=== PATIENT | female | born 1990 | race Caucasian/White ===

== ENCOUNTER → 2019-09-16 11:00 | Outpatient (BNVA) | payer MEDICAID, SELFPAY | PROVIDERS: Visit Provider Nurse Practitioner | DX: B37.9 Candidiasis, unspecified (principal); K59.00 Constipation, unspecified | CPT/HCPCS: 87070 ==

== ENCOUNTER 2019-12-09 11:02 | Day surgery (SDC) | payer MEDICAID, SELFPAY ==
[2019-12-06 14:20] VITALS: BMI 35.5
--- NOTE | 2019-12-09 09:13 | W.PM.OPSFHP ---
Same Day Surgery H&P Indication for Procedure/HPI DATE OF PROCEDURE: December 09, 2019 CHIEF COMPLAINT/INDICATIONFOR SURGICAL PROCEDURE: Nausea vomiting and weight loss PREOP DIAGNOSIS: Nausea vomiting and weight loss PLANNED PROCEDRUE: Operation Date: 12/09/19 12:40 Proposed Procedures p EGD 72617 R11.2(Not Applicable) - Amando Velasquez MD Medications/Allergies* Home Medications Medication Instructions Recorded Confirmed Type prochlorperazine maleate 5 mg 5 mg PO QID PRN 11/05/19 12/06/19 History tablet Allergies/Adverse Reactions Allergy/AdvReac Type Severity Reaction Status Date / Time No Known Allergies Allergy Verified 12/06/19 10:55 Pertinent History/Comorbid Conditions* Social History Smoking and tobacco status: never smoked Second hand smoke exposure: No Smoking risk assessment/counseling performed?: No Alcohol intake: never Desire information about alcohol rehabilitation?: No Counseling given: No Desire information about substance/drug rehabilitation?: No Counseling given: No Pertinent Exam Findings alert, oriented x 3, clear to auscultation bilaterally, regular rate & rhythm, operative site marked and procedure specific exam findings Recommendations Surgery/Procedure today Coding Level of Care Code Acute Air Bag Buffer for Razia Munoz
[2019-12-09 11:30] VITALS: BP 119/84; PULSE 81; RESP 18; TEMP 36.8; O2SAT 100
[2019-12-09] MEDS: sodium chloride 0.9% 1,000 ML 30 ML IV (11:35)
--- NOTE | 2019-12-09 12:01 | P.ANESASSM_ITS ---
Pre-Anesthetic Assessment Pre-Anesthetic Assessment: Height/Weight: Height 1.68 m Weight 99.79 kg Temp Pulse Resp BP Pulse Ox 98.2 F 81 18 119/84 100 12/09/19 11:30 12/09/19 11:30 12/09/19 11:30 12/09/19 11:30 12/09/19 11:30 Preop Diagnosis: nv Proposed Procedure: Operation Date: 12/09/19 12:40 Proposed Procedures p EGD 03310 R11.2(Not Applicable) - Amando Velasquez MD Familial anesthetic complications: None Was Beta Madonna taken within 24 hours: N/A Last intake: Intake Last Liquid Date 12/08/19 Last Liquid Time 19:30 Last Solid Date 12/08/19 Last Solid Time 19:30 Social: Social History: No alcohol and No tobacco Exam: Pre-Anes Outpt Exam: alert, oriented x 3, clear to auscultation bilaterally and regular rate & rhythm Airway: Cervical ROM: WNL MP: 1 Dentition: Full Pulmonary: Pulmonary: None reported CV/HEM: CV/HEM: None reported : : None reported Hepatic: Hepatic: None reported GI: GI: GERD Metabolic: Metabolic: Morbid obesity Musc/skel: Musc/skel: None reported Neuropsych: Neuropsych: None reported Anesthetic Plan: ASA status: 1 Anesthesia: MAC Risk of > 500 ml blood loss (7ml/kg in children): No Meds/Allergies Current Medications: Current Medications Generic Name Dose Route Start Last Admin Trade Name Freq PRN Reason Stop Dose Admin Sodium Chloride 1,000 mls @ 30 ml s/hr 12/09/19 11:15 12/09/19 11:35 Sodium Chloride 0.9% IV 12/10/19 11:14 30 mls/hr .Q24H KLAUS Administration PFSH Anesthesia PFSH: Social History (System 12/06/19 @ 10:55 by Katey Salamanca) Smoking and tobacco status: never smoked Second hand smoke exposure: No Smoking risk assessment/counseling performed?: No Alcohol intake: never Desire information about alcohol rehabilitation?: No Counseling given: No Desire information about substance/drug rehabilitation?: No Counseling given: No Data Anesthesia Cardiac Studies: 2 No Data to Display
[2019-12-09 13:09] VITALS: BP 130/71; PULSE 69; RESP 16; TEMP 36.7; O2SAT 99
--- NOTE | 2019-12-09 13:12 | ANE.PACU2 ---
 Inpatient post-anesthesia follow up: Airway intact: Yes Vital signs: Temperature 98.0 F Pulse Rate 69 Respiratory Rate 16 Blood Pressure 130/71 Pulse Oximetry 99 Oxygen Delivery Me thod Room Air Oxygen Flow Rate Fraction of Inspir ed Oxygen Hydration adequate: Yes Nausea and vomiting: No Pain level: 1 Mental status: Baseline
[2019-12-09 13:15] VITALS: BP 129/78; PULSE 61; RESP 16; O2SAT 99
--- NOTE | 2019-12-09 13:34 | PC.NURSE ---
Patient stated that her fiance was going to be a little late coming to get her, (at a car dealership) and requested to sit in the OPS waiting room for him to arrive. This nurse escorted the patient via w/c to the waiting room and instructed the patient to remain in the waiting room for her ride. The patient agreed and verified that she would not be leaving on her own or driving herself home today.
== END 2019-12-09 13:30 | disposition home or self-care (01) ==
PROVIDERS: Visit Provider Internal Medicine
PROC: 0DJ08ZZ Inspection of Upper Intestinal Tract, Via Natural or Artificial Opening Endoscopic (ICD-10-PCS; CPT 43235; principal; 2019-12-09 12:35)
DX: R11.2 Nausea with vomiting, unspecified (principal); K21.9 Gastro-esophageal reflux disease without esophagitis; E66.01 Morbid (severe) obesity due to excess calories; Z68.35 Body mass index [BMI] 35.0-35.9, adult
CPT/HCPCS: 43235; 12345; J2704; J7030

== ENCOUNTER 2020-04-05 20:09 | Emergency (ER) | payer MEDICAID, SELFPAY ==
[2020-04-05 20:18] VITALS: BP 115/52; PULSE 69; RESP 18; TEMP 37.2; O2SAT 97; BMI 34.8
--- NOTE | 2020-04-05 20:45 | XR_ITS ---
WS: [id number] PORTABLE CHEST HISTORY: Dyspnea COMPARISON: None available. Lungs are clear and well expanded. No pleural effusion or pneumothorax. Cardiac size: Normal. Mediastinum/Aorta: Normal mediastinum. No osseous abnormality seen. XR/XR chest 1V portable [id number] IMPRESSION: Unremarkable portable chest.
--- NOTE | 2020-04-05 21:21 | ED_ITS ---
HPI - SOB/Dyspnea General: Chief Complaint: Shortness of Breath/Dyspnea Stated Complaint: SOB/ chest pain/ covid symptoms Time Seen by Provider: 04/05/20 20:30 Source: patient Mode of arrival: ambulatory Limitations: no limitations History of Present Illness: HPI Narrative: Christine is a nice 30-year-old female who comes in complaining of cough and sore throat. Patient has a known positive exposure to the COVID-19 virus. Patient denies any fever, loss of sense of taste, loss of sense of smell or any nausea or vomiting. She states she just feels like she is beginning to get a cold. She otherwise denies any complaints. Associated symptoms: Deny abdominal pain, chest congestion, chest pain, diaphoresis, dizziness, extremity pain, fever(s), hemoptysis, lightheadedness, nausea, orthopnea, palpitations, syncope or vomiting Review of Systems Const: Denies: fever(s), chills, body aches, fatigue, malaise or diaphoresis Eyes: Denies: change in vision, blurry vision, photophobia, eye discomfort, eye discharge or eye redness ENMT: Reports: throat pain; Denies: odynophagia, hoarseness, swelling of lips/tongue, ear or mastoid pain, ear discharge, change in hearing or nasal discharge Card: Denies: chest pain, palpitations, irregular heart rhythm, edema, lightheadedness, syncope, pre-syncope, dyspnea on exertion or orthopnea Resp: Denies: dyspnea, productive cough, wheezing, hemoptysis or chest congestion GI: Denies: abdominal pain, nausea, vomiting, hematemesis, coffee ground emesis, heartburn, diarrhea, constipation, GI cramping, hematochezia or melena : Denies: flank pain, dysuria, urinary frequency, urinary urgency or hematuria Musc: Denies: neck pain, back pain, extremity pain, extremity swelling, joint pain, joint swelling, joint redness, joint warmth or joint stiffness Skin/Breast: Denies: rash, pruritus, erythema or skin tenderness Neuro: Denies: headache(s), numbness in extremities, weakness in extremities, sensory changes, lack of coordination, difficulty walking, dizziness, vertigo, confusion, Slurred speech present or seizure-like activity Luiz/Lymph: Denies: easy bruising, easy bleeding, petechiae, purpura or enlarged lymph nodes All/Imm: Denies: urticaria, throat swelling, tongue swelling, facial swelling or acute wheezing PFSH ED PFSH: Medical History Recurrent UTI Surgical History History of esophagogastroduodenoscopy (EGD) Family History Other Cancer Diabetes Social History Smoking and tobacco status: never smoked Second hand smoke exposure: No Smoking risk assessment/counseling performed?: No Alcohol intake: never Desire information about alcohol rehabilitation?: No Counseling given: No Desire information about substance/drug rehabilitation?: No Counseling given: No Female Reproductive History: Date of last menstrual period: 03/30/20 Physical Exam Const: COMMON NORMALS: no acute distress, patient oriented x3, no limitations, healthy appearing and well nourished GENERAL APPEARANCE: cooperative, well kempt and well developed HENMT: COMMON NORMALS: normocephalic, atraumatic, external ears normal, EAC's normal and Normal external nose present HEAD & SCALP: normal to inspection, normocephalic and atraumatic FACE & SINUS: normal facial exam and face symmetric NOSE: Normal external nose present and Normal nares present EXTERNAL EAR: Yes external ears normal EXTERNAL AUDITORY CANAL: EAC's normal MOUTH: Normal oral and palatal mucosa present, lip normal and tongue normal Eye: COMMON NORMALS: Equal, round and reactive pupils present and conjunctivae normal GENERAL EYE: appearance normal, both eyes and all related structures ALIGNMENT: Yes alignment normal PERIORBITAL: periorbital findings normal EYELID: eyelids normal CONJUNCTIVA: Yes conjunctivae normal SCLERA: sclerae normal PUPIL: Yes Equal, round and reactive pupils present Neck/C-Spine: COMMON NORMALS: full ROM, no lymphadenopathy, supple, no meningeal signs and no JVD GENERAL: Yes normal visual inspection and Yes trachea midline Chest: COMMONS NORMALS: normal inspection of the chest and normal palpation of entire chest wall Resp: COMMON NORMALS: normal respiratory effort, No retractions, No use of accessory muscles and clear to auscultation bilaterally EFFORT & INSPECTION: Yes able to speak in complete sentences and Yes symmetric chest movement AUSCULTATION: clear to auscultation bilaterally, no crackles, no rales, no rhonchi and no wheezes Cardio: COMMON NORMALS: no JVD, regular rate, regular rhythm, S1 normal heart sound present and S2 normal heart sound present RATE: regular rate RHYTHM: regular rhythm HEART SOUNDS: S1 normal heart sound present, S2 normal heart sound present, no click, no gallops, no murmurs, no rubs and abnormal split S2 GI: COMMON NORMALS: Soft to palpation and No hepatosplenomegaly present PALPATION: Yes Soft to palpation, No Tenderness to palpation present (GI), No Guarding due to palpation present (GI), No Rigid due to palpation, Yes No hepatosplenomegaly present, No Hernia present, No Palpable mass present and No Pulsatile mass present : COMMON NORMALS: Yes no CVA tenderness BLADDER/KIDNEY EXAM: Yes no CVA tenderness EXTERNAL FEMALE EXAM: No Hernia present Back/Pelvis: COMMON NORMALS: no CVA tenderness, thoracic and lumbar spine normal to inspection, no thoracic nor lumbar tenderness and thoraco-lumbar ROM normal Extremity: COMMON NORMALS: normal to inspection, full ROM, capillary refill normal, no joint enlargement, no clubbing, cyanosis or edema and no calf tenderness Neuro: COMMON NORMALS: patient oriented x3, CN's II-XII intact bilaterally, moves all extremities, no focal motor deficits and no sensory deficits noted MENINGEAL SIGNS: Yes no meningeal signs SPEECH: speech normal Psych: COMMON NORMALS: mental status grossly normal, Normal thought process present, cooperative, normal affect, speech normal and activity/motor behavior normal APPEARANCE: Yes well kempt SPEECH: Yes normal speech THOUGHT PROCESS: Normal thought process present Skin: COMMON NORMALS: no rashes or lesions noted, turgor normal, no jaundice, no petechiae and no mottling GENERAL SKIN EXAM: no rashes or lesions noted and turgor normal Course Vital Signs: Vital signs: Vital Signs Temperature 98.9 F 04/05/20 20:18 Pulse Rate 69 04/05/20 20:18 Respiratory Rate 18 04/05/20 20:18 Blood Pressure 115/52 04/05/20 20:18 Pulse Oximetry 97 04/05/20 20:18 MDM - SOB/Dyspnea MDM Narrative: Medical decision making narrative: Patient is a healthy 30-year-old female comes in complaining of shortness of breath, cough and sore throat. She has a positive COVID-19 exposure. At this time she appears hemodynamically stable without hypoxia, tachypnea and no clinical sign of sep sis. Chest x-ray is clear and she is not hypoxic. COVID test has been sent the patient states she can quarantine herself until the results are known. She agrees to return should her symptoms change or worsen but at this time she is ready for discharge. Imaging Data^: CXR: Attestation: I personally reviewed and interpreted this imaging study as follows: My impression: No acute cardiopulmonary findings. Discharge Plan Discharge Patient Disposition: Home Clinical Impression: Acute viral syndrome Condition: Stable Prescriptions: No Action prochlorperazine maleate 5 mg tablet 5 mg PO QID PRN (Reason: Nausea) RF: 0 Dexilant 30 mg capsule,biphase delayed releas 30 mg PO DAILY Qty: 30 RF: 1 Discharge Orders: Discharge Order (Routine); Ordered 04/05/20 Ordered By: Cecile Pascual Referrals: Amando Velasquez MD [Primary Care Provider] - 1-3 days Discharge Diet: Advance as tolerated Discharge Activity: Increase activity as tolerated Patient Instructions: Viral Syndrome (ED) Activity Restrictions/Additional Instructions: Please return to the ER immediately for any of the signs or symptoms listed on your discharge instruction sheets, worsening/changing of your symptoms, you are not getting better as quickly as expected, or for ANY other cause or concerns. Keep yourself quarantined and away from others until you were called with your test results. Return to the ER for worsening of your symptoms, chest pain, shortness of breath, or for any other cause for concern. Coding Level of Care Code ED Jewel Hole Finish Opener for Razia Munoz
[2020-04-05 22:05] VITALS: BP 146/70; PULSE 89; RESP 18; O2SAT 99
[2020-04-07 15:37] LABS: Quest SARS-CoV-2 RNA NOT DETECTED (NOT DETECTED)
--- NOTE | 2020-04-08 08:32 | PC.NURSE ---
Attempted to contact the pt again today. No working number is listed on facesheet. We are sending a letter out to pt.
--- NOTE | 2020-04-08 09:21 | PC.NURSE ---
pt called asking for lab results. Neg COVID results.
== END 2020-04-05 22:07 | disposition home or self-care (01) ==
PROVIDERS: Emergency Provider Emergency Medicine; PCP Internal Medicine
DX: B34.9 Viral infection, unspecified (principal)
CPT/HCPCS: 12345; 71045; 87635; 99281; 99283

== ENCOUNTER → 2020-09-29 11:20 | Outpatient (BNVA) | payer MEDICAID, SELFPAY | PROVIDERS: PCP Internal Medicine; Visit Provider Nurse Practitioner Women's Health | DX: Z12.4 Encounter for screening for malignant neoplasm of cervix (principal); N89.8 Other specified noninflammatory disorders of vagina | CPT/HCPCS: 87070; 87205; 88175 ==

== ENCOUNTER 2020-11-24 16:21 | Emergency (ER) | payer MEDICAID, SELFPAY ==
[2020-11-24 16:33] VITALS: BP 120/85; PULSE 78; RESP 18; TEMP 37.3; O2SAT 97; BMI 38.0
--- NOTE | 2020-11-24 16:49 | W.ED.CHESTPA ---
Documented by User: Carlito Reynolds DO 11/28/20 14:39 HPI - Chest Pain General: Chief Complaint: Chest Pain Stated Complaint: CHEST PAIN/NUMBNESS IN L. 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 She is nondiabetic she has no history of hypertension or diabetes no history of hyperlipidemia. MD complaint: chest pain and chest heaviness Onset (ago): minute(s) Timing of current episode: episodic Onset: during rest Pain location: left chest Pain radiation: left arm Severity: moderate Quality: heaviness Relieving factors: nothing Exacerbating factors: nothing Associated symptoms: Deny abdominal pain, diaphoresis, dyspnea, fever(s), leg edema, nausea, palpitations, sense of impending doom, syncope, vomiting or other Review of Systems Const: Denies: fever(s) or diaphoresis ENMT: Denies: throat pain, ear or mastoid pain, nasal discharge or nasal congestion Card: Denies: palpitations Resp: Denies: dyspnea GI: Denies: abdominal pain, nausea or vomiting : Denies: flank pain, difficulty voiding, dysuria, urinary frequency or urinary urgency Skin/Breast: Denies: rash or pruritus PFSH ED PFSH: Medical History (Updated 11/27/20 @ 16:19 by Chung Bonds MD) No pertinent past medical history neghx: htn,dm,thyroid,dvt/pe 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 Family/Other Breast cancer Maternal Aunt--dx age 30's Diabetes Maternal side-- several members; only MGF with insulin Other Family history of premature coronary artery disease Denies family history of Colon cancer Ovarian cancer Heart disease Hypercholesteremia Hypertension Uterine cancer Thyroid disease Stroke Social History (Updated 11/27/20 @ 16:15 by Chung Bonds MD) Smoking and tobacco status: current every day smoker cigarettes [ Other cigarette details: Quit smoking in 08/2020 ] and e-cigarettes E-cig/vape details: Report currently vapes. Alcohol intake: current Alcohol use comment: Socially Substance/Drug Use: never Female Reproductive History: Date of last menstrual period: 03/30/20 Physical Exam Const: COMMON NORMALS: no acute distress GENERAL APPEARANCE: cooperative and comfortable ORIENTATION/CONSCIOUSNESS: Yes awake, Yes oriented to person, Yes oriented to place and Yes oriented to time HENMT: COMMON NORMALS: normocephalic, atraumatic and hearing grossly normal bilaterally HEAD & SCALP: normocephalic and atraumatic Eye: COMMON NORMALS: Equal, round and reactive pupils present, EOMs intact bilaterally, conjunctivae normal and no scleral icterus CONJUNCTIVA: Yes conjunctivae normal PUPIL: Yes Equal, round and reactive pupils present Neck/C-Spine: COMMON NORMALS: full ROM, no lymphadenopathy, supple and no JVD Lymph: LYMPHATIC: no lymphadenopathy noted and no lymphedema noted Resp: COMMON NORMALS: normal respiratory effort, No retractions, No use of accessory muscles and clear to auscultation bilaterally AUSCULTATION: clear to auscultation bilaterally Cardio: COMMON NORMALS: no JVD, regular rate, regular rhythm and No murmurs present (Cardio) RATE: regular rate RHYTHM: regular rhythm GI: COMMON NORMALS: Soft to palpation and No hepatosplenomegaly present AUSCULTATION: Yes normoactive bowel sounds PALPATION: Yes Soft to palpation, No Tenderness to palpation present (GI), No Guarding due to palpation present (GI) and Yes No hepatosplenomegaly present Extremity: COMMON NORMALS: normal to inspection, capillary refill normal, no clubbing, cyanosis or edema, no calf tenderness and no pedal edema Neuro: SENSORIUM/ORIENTATION: Yes oriented to person, Yes oriented to place and Yes oriented to time Skin: COMMON NORMALS: no rashes or lesions noted GENERAL SKIN EXAM: no rashes or lesions noted Course Vital Signs: Vital signs: Vital Signs Temperature 99.2 F 11/24/20 16:33 Pulse Rate 70 11/24/20 20:45 Respiratory Rate 18 11/24/20 18:34 Blood Pressure 135/85 11/24/20 20:45 Pulse Oximetry 100 11/24/20 20:45 MDM - Chest Pain MDM Narrative: Medical decision making narrative: Care turned over to Dr. Cheng at change of shift see his note for final diagnosis and disposition Lab Data: Labs: Lab Results 11/24/20 11/24/20 11/24/20 Range/Units 17:04 17:04 17:04 WBC 7.1 (4.0-10.0) 10^3/ uL RBC 5.16 (4.1-5.3) 10^6/u L Hgb 14.2 (11.5-15.3) g/dL Hct 44.4 (37.0-47.0) % MCV 86.0 (81-99) fL MCH 27.5 L (28.0-34.0) pg MCHC 32.0 (30.0-36.0) g/dL RDW 13.1 (12.1-15.1) % Plt Count 263 (130-400) 10^3/c mm MPV 11.8 H (7.4-10.4) fL Neut % (Auto) 59.7 % Lymph % (Auto) 30.9 % [place] % (Auto) 8.0 % Eos % (Auto) 0.4 % Baso % (Auto) 0.7 % Neut # (Auto) 4.26 (1.8-7.7) 10^3/u L Lymph # (Auto) 2.2 (0.8-4.8) 10^3/u L [place] # (Auto) 0.6 (0.2-0.9) 10^3/u L Eos # (Auto) 0.0 (0.0-0.8) 10^3/u L Baso # (Auto) 0.1 (0.0-0.1) 10^3/u L Nucleated RBC % (a uto) 0 % Nucleated RBCs # 0.0 /100WBC D-Dimer (0-0.59) ug/mIFE U Sodium 140 (136-145) mmol/L Potassium 4.1 (3.5-5.1) mmol/L Chloride 105 (98-107) mmol/L Carbon Dioxide 25 (22-29) mmol/L Anion Gap 14.1 (5-19) BUN 7 (6-20) mg/dL Creatinine 0.6 (0.5-0.9) mg/dL GFR Calculation 117.4 (90-130) mL/min Glucose 87 (65-115) mg/dL Calculated Osmolal ity 287 (285-295) mOsm/k g Calcium 9.5 (8.5-10.5) mg/dL Total Bilirubin 0.3 (0.15-1.2) mg/dL AST 12 (0-32) U/L ALT 10 (0-33) U/L Alkaline Phosphata se 78 (35-105) IU/L Creatine Kinase 52 (26-192) U/L Troponin T Baselin e 6 (0-10) ng/L Troponin T 120 Min [place] (0-10) ng/L Delta Troponin T (0-10) ABS# Total Protein 7.1 (6.6-8.7) g/dL Albumin 4.6 (3.5-5.2) g/dL Globulin 2.5 (1.3-4.6) g/dL 11/24/20 11/24/20 Range/Units 17:28 19:05 WBC (4.0-10.0) 10^3/ uL RBC (4.1-5.3) 10^6/u L Hgb (11.5-15.3) g/dL Hct (37.0-47.0) % MCV (81-99) fL MCH (28.0-34.0) pg MCHC (30.0-36.0) g/dL RDW (12.1-15.1) % Plt Count (130-400) 10^3/c mm MPV (7.4-10.4) fL Neut % (Auto) % Lymph % (Auto) % [place] % (Auto) % Eos % (Auto) % Baso % (Auto) % Neut # (Auto) (1.8-7.7) 10^3/u L Lymph # (Auto) (0.8-4.8) 10^3/u L [place] # (Auto) (0.2-0.9) 10^3/u L Eos # (Auto) (0.0-0.8) 10^3/u L Baso # (Auto) (0.0-0.1) 10^3/u L Nucleated RBC % (a uto) % Nucleated RBCs # /100WBC D-Dimer 0.44 (0-0.59) ug/mIFE U Sodium (136-145) mmol/L Potassium (3.5-5.1) mmol/L Chloride (98-107) mmol/L Carbon Dioxide (22-29) mmol/L Anion Gap (5-19) BUN (6-20) mg/dL Creatinine (0.5-0.9) mg/dL GFR Calculation (90-130) mL/min Glucose (65-115) mg/dL Calculated Osmolal ity (285-295) mOsm/k g Calcium (8.5-10.5) mg/dL Total Bilirubin (0.15-1.2) mg/dL AST (0-32) U/L ALT (0-33) U/L Alkaline Phosphata se (35-105) IU/L Creatine Kinase (26-192) U/L Troponin T Baselin e (0-10) ng/L Troponin T 120 Min [place] 6.00 (0-10) ng/L Delta Troponin T 0 (0-10) ABS# Total Protein (6.6-8.7) g/dL Albumin (3.5-5.2) g/dL Globulin (1.3-4.6) g/dL Discharge Plan Discharge Patient Disposition: Home Clinical Impression: Atypical chest pain, Chest pain due to GERD, Esophageal spasm Chest pain Qualifiers: Chest pain type: other chest pain Qualified Code(s): R07.89 - Other chest pain Condition: Stable Prescriptions: No Action fluconazole [Diflucan] 200 mg tablet 200 mg PO .COMPLEX Qty: 3 RF: 0 Discharge Orders: Discharge ED (Routine); Ordered 11/24/20 Ordered By: Jorge Cheng Referrals: Amanda Girard DO [Primary Care Provider] - 4-7 days Discharge Diet: Advance as tolerated Discharge Activity: Resume usual activity Patient Instructions: Opioid Safety Activity Restrictions/Additional Instructions: May take Levsin as needed for esophageal spasm. Take omeprazole and Carafate to help with reflux. Sign Out Sign Out Data: Patient Sign Out occurred on 11/24/20 at 18:14. Patient's care was discussed, and care was transferred from to Jorge Cheng MD. Coding Level of Care Code ED General Assembler Installer for Chg Fwd Documented by User: Jorge Cheng MD 11/24/20 20:34 HPI - Chest Pain General: Chief Complaint: Chest Pain Stated Complaint: CHEST PAIN/NUMBNESS IN L. 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 Family/Other Breast cancer Maternal Aunt--dx age 30's Diabetes Maternal side-- several members; only MGF with insulin Other Family history of premature coronary artery disease Denies family history of Colon cancer Ovarian cancer Heart disease Hypercholesteremia Hypertension Uterine cancer Thyroid disease Stroke Social History (Updated 11/27/20 @ 16:15 by Chung Bonds MD) Smoking and tobacco status: current every day smoker cigarettes [ Other cigarette details: Quit smoking in 08/2020 ] and e-cigarettes E-cig/vape details: Report currently vapes. Alcohol intake: current Alcohol use comment: Socially Substance/Drug Use: never Course Vital Signs: Vital signs: Vital Signs Temperature 99.2 F 11/24/20 16:33 Pulse Rate 70 11/24/20 20:45 Respiratory Rate 18 11/24/20 18:34 Blood Pressure 135/85 11/24/20 20:45 Pulse Oximetry 100 11/24/20 20:45 MDM - Chest Pain MDM Narrative: Medical decision making narrative: assumed care from dr. reynolds Pain is likely due to esophageal spasm and GERD. Lab Data: Attestation: I reviewed the patient's lab results. Lab results narrative: Second troponin is still normal. Labs: Lab Results 11/24/20 11/24/20 11/24/20 Range/Units 17:04 17:04 17:04 WBC 7.1 (4.0-10.0) 10^3/ uL RBC 5.16 (4.1-5.3) 10^6/u L Hgb 14.2 (11.5-15.3) g/dL Hct 44.4 (37.0-47.0) % MCV 86.0 (81-99) fL MCH 27.5 L (28.0-34.0) pg MCHC 32.0 (30.0-36.0) g/dL RDW 13.1 (12.1-15.1) % Plt Count 263 (130-400) 10^3/c mm MPV 11.8 H (7.4-10.4) fL Neut % (Auto) 59.7 % Lymph % (Auto) 30.9 % [place] % (Auto) 8.0 % Eos % (Auto) 0.4 % Baso % (Auto) 0.7 % Neut # (Auto) 4.26 (1.8-7.7) 10^3/u L Lymph # (Auto) 2.2 (0.8-4.8) 10^3/u L [place] # (Auto) 0.6 (0.2-0.9) 10^3/u L Eos # (Auto) 0.0 (0.0-0.8) 10^3/u L Baso # (Auto) 0.1 (0.0-0.1) 10^3/u L Nucleated RBC % (a uto) 0 % Nucleated RBCs # 0.0 /100WBC D-Dimer (0-0.59) ug/mIFE U Sodium 140 (136-145) mmol/L Potassium 4.1 (3.5-5.1) mmol/L Chloride 105 (98-107) mmol/L Carbon Dioxide 25 (22-29) mmol/L Anion Gap 14.1 (5-19) BUN 7 (6-20) mg/dL Creatinine 0.6 (0.5-0.9) mg/dL GFR Calculation 117.4 (90-130) mL/min Glucose 87 (65-115) mg/dL Calculated Osmolal ity 287 (285-295) mOsm/k g Calcium 9.5 (8.5-10.5) mg/dL Total Bilirubin 0.3 (0.15-1.2) mg/dL AST 12 (0-32) U/L ALT 10 (0-33) U/L Alkaline Phosphata se 78 (35-105) IU/L Creatine Kinase 52 (26-192) U/L Troponin T Baselin e 6 (0-10) ng/L Troponin T 120 Min [place] (0-10) ng/L Delta Troponin T (0-10) ABS# Total Protein 7.1 (6.6-8.7) g/dL Albumin 4.6 (3.5-5.2) g/dL Globulin 2.5 (1.3-4.6) g/dL 11/24/20 11/24/20 Range/Units 17:28 19:05 WBC (4.0-10.0) 10^3/ uL RBC (4.1-5.3) 10^6/u L Hgb (11.5-15.3) g/dL Hct (37.0-47.0) % MCV (81-99) fL MCH (28.0-34.0) pg MCHC (30.0-36.0) g/dL RDW (12.1-15.1) % Plt Count (130-400) 10^3/c mm MPV (7.4-10.4) fL Neut % (Auto) % Lymph % (Auto) % [place] % (Auto) % Eos % (Auto) % Baso % (Auto) % Neut # (Auto) (1.8-7.7) 10^3/u L Lymph # (Auto) (0.8-4.8) 10^3/u L [place] # (Auto) (0.2-0.9) 10^3/u L Eos # (Auto) (0.0-0.8) 10^3/u L Baso # (Auto) (0.0-0.1) 10^3/u L Nucleated RBC % (a uto) % Nucleated RBCs # /100WBC D-Dimer 0.44 (0-0.59) ug/mIFE U Sodium (136-145) mmol/L Potassium (3.5-5.1) mmol/L Chloride (98-107) mmol/L Carbon Dioxide (22-29) mmol/L Anion Gap (5-19) BUN (6-20) mg/dL Creatinine (0.5-0.9) mg/dL GFR Calculation (90-130) mL/min Glucose (65-115) mg/dL Calculated Osmolal ity (285-295) mOsm/k g Calcium (8.5-10.5) mg/dL Total Bilirubin (0.15-1.2) mg/dL AST (0-32) U/L ALT (0-33) U/L Alkaline Phosphata se (35-105) IU/L Creatine Kinase (26-192) U/L Troponin T Baselin e (0-10) ng/L Troponin T 120 Min [place] 6.00 (0-10) ng/L Delta Troponin T 0 (0-10) ABS# Total Protein (6.6-8.7) g/dL Albumin (3.5-5.2) g/dL Globulin (1.3-4.6) g/dL Discharge Plan Discharge Patient Disposition: Home Clinical Impression: Atypical chest pain, Chest pain due to GERD, Esophageal spasm Chest pain Qualifiers: Chest pain type: other chest pain Qualified Code(s): R07.89 - Other chest pain Condition: Stable Prescriptions: No Action fluconazole [Diflucan] 200 mg tablet 200 mg PO .COMPLEX Qty: 3 RF: 0 Discharge Orders: Discharge ED (Routine); Ordered 11/24/20 Ordered By: Jorge Cheng Referrals: Amanda Girard DO [Primary Care Provider] - 4-7 days Discharge Diet: Advance as tolerated Discharge Activity: Resume usual activity Patient Instructions: Opioid Safety Activity Restrictions/Additional Instructions: May take Levsin as needed for esophageal spasm. Take omeprazole and Carafate to help with reflux. Sign Out Sign Out Data: Patient Sign Out occurred on 11/24/20 at 18:14. Patient's care was discussed, and care was transferred from to Jorge Cheng MD. Coding Level of Care Code ED General Assembler Installer for Razia Munoz
[2020-11-24 17:14] VITALS: BP 121/84; PULSE 87; RESP 18; O2SAT 96
--- NOTE | 2020-11-24 17:17 | ECG_ITS ---
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
--- NOTE | 2020-11-24 17:17 | XR_ITS ---
WS: [id number] Portable AP upright chest, 11/24/2020 Clinical Data: dyspnea Comparison: Portable chest, 04/05/2020. Findings: No nodules, masses or effusions are seen. The heart is normal. The pulmonary vascularity is not increased. No pneumonia or pneumothorax is seen. There are monitor leads on the chest wall. XR/XR chest 1V portable [id number] Impression: Negative chest.
[2020-11-24 17:43] LABS: Basophils # 0.1 10^3/uL (0.0-0.1); Basophils % 0.7 %; Eosinophils % 0.4 %; Hematocrit 44.4 % (37.0-47.0); Hemoglobin 14.2 g/dL (11.5-15.3); Lymphocytes # 2.2 10^3/uL (0.8-4.8); Lymphocytes % 30.9 %; Mean Corpuscular Hemoglobin 27.5 pg (28.0-34.0); Mean Platelet Volume 11.8 fL (7.4-10.4); Monocytes # 0.6 10^3/uL (0.2-0.9); Neutrophils # 4.26 10^3/uL (1.8-7.7); Neutrophils % 59.7 %; Nucleated Red Blood Cells % 0 %; Platelet Count 263 10^3/cmm (130-400); Red Blood Count 5.16 10^6/uL (4.1-5.3); Red Cell Distribution Width 13.1 % (12.1-15.1); White Blood Count 7.1 10^3/uL (4.0-10.0)
[2020-11-24 18:10] LABS: Alanine Aminotransferase 10 U/L (0-33); Albumin Level 4.6 g/dL (3.5-5.2); Alkaline Phosphatase 78 IU/L (35-105); Anion Gap 14.1 (5-19); Aspartate Amino Transferase 12 U/L (0-32); Blood Urea Nitrogen 7 mg/dL (6-20); Calcium 9.5 mg/dL (8.5-10.5); Carbon Dioxide 25 mmol/L (22-29); Chloride 105 mmol/L (98-107); Creatine Phosphokinase 52 U/L (26-192); Globulin 2.5 g/dL (1.3-4.6); Glomerular Filtration Rate 117.4 mL/min (90-130); Glucose 87 mg/dL (65-115); Osmolality Calculated 287 mOsm/kg (285-295); Potassium 4.1 mmol/L (3.5-5.1); Sodium 140 mmol/L (136-145); Total Bilirubin 0.3 mg/dL (0.15-1.2); Total Protein 7.1 g/dL (6.6-8.7)
[2020-11-24 18:10] LABS: D Dimer 0.44 ug/mIFEU (0-0.59)
[2020-11-24 18:13] LABS: Troponin(5th) Baseline 6 ng/L (0-10)
[2020-11-24 18:34] VITALS: BP 126/87; PULSE 78; RESP 18; O2SAT 98
--- NOTE | 2020-11-24 19:17 | ECG_ITS ---
[facility] Test Date: 2020-11-24 Pat Name: Christine Cantu Department: Room: Gender: Female [place] Operator: : 1990 Requested By: Carlito Gibbs Order Number: [id number] Reading MD: JONNY JORDAN Measurements Intervals [place] Rate: 63 P: 55 MS: 153 QRS: 47 QRSD: 90 T: 49 QT: 370 QTc: 379 Interpretive Statements SINUS RHYTHM Compared to ECG 11/24/2020 16:52:16 No significant changes Electronically Signed On 11-24-2020 23:42:01 CDT by JONNY JORDAN [id number]
[2020-11-24 19:20] VITALS: BP 125/80; PULSE 75; O2SAT 98
[2020-11-24 19:43] LABS: Troponin 5 2HR Delta 0 ABS# (0-10)
[2020-11-24 20:45] VITALS: BP 135/85; PULSE 70; O2SAT 100
--- NOTE | 2020-11-24 20:50 | W.ED.SOB ---
HPI - SOB/Dyspnea General: Chief Complaint: Chest Pain Stated Complaint: CHEST PAIN/NUMBNESS IN L. 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 Family/Other Breast cancer Maternal Aunt--dx age 30's Diabetes Maternal side-- several members; only MGF with insulin Other Family history of premature coronary artery disease Denies family history of Colon cancer Ovarian cancer Heart disease Hypercholesteremia Hypertension Uterine cancer Thyroid disease Stroke Female Reproductive History: Date of last menstrual period: 03/30/20 Course Vital Signs: Vital signs: Vital Signs Temperature 99.2 F 11/24/20 16:33 Pulse Rate 75 11/24/20 19:20 Respiratory Rate 18 11/24/20 18:34 Blood Pressure 125/80 11/24/20 19:20 Pulse Oximetry 98 11/24/20 19:20 MDM - SOB/Dyspnea MDM Narrative: Medical decision making narrative: This is an addendum note for EKG interpretation for this patient. Patient was already admitted. Lab Data: Labs: Lab Results 11/24/20 11/24/20 11/24/20 Range/Units 17:04 17:04 17:04 WBC 7.1 (4.0-10.0) 10^3/ uL RBC 5.16 (4.1-5.3) 10^6/u L Hgb 14.2 (11.5-15.3) g/dL Hct 44.4 (37.0-47.0) % MCV 86.0 (81-99) fL MCH 27.5 L (28.0-34.0) pg MCHC 32.0 (30.0-36.0) g/dL RDW 13.1 (12.1-15.1) % Plt Count 263 (130-400) 10^3/c mm MPV 11.8 H (7.4-10.4) fL Neut % (Auto) 59.7 % Lymph % (Auto) 30.9 % [place] % (Auto) 8.0 % Eos % (Auto) 0.4 % Baso % (Auto) 0.7 % Neut # (Auto) 4.26 (1.8-7.7) 10^3/u L Lymph # (Auto) 2.2 (0.8-4.8) 10^3/u L [place] # (Auto) 0.6 (0.2-0.9) 10^3/u L Eos # (Auto) 0.0 (0.0-0.8) 10^3/u L Baso # (Auto) 0.1 (0.0-0.1) 10^3/u L Nucleated RBC % (a uto) 0 % Nucleated RBCs # 0.0 /100WBC D-Dimer (0-0.59) ug/mIFE U Sodium 140 (136-145) mmol/L Potassium 4.1 (3.5-5.1) mmol/L Chloride 105 (98-107) mmol/L Carbon Dioxide 25 (22-29) mmol/L Anion Gap 14.1 (5-19) BUN 7 (6-20) mg/dL Creatinine 0.6 (0.5-0.9) mg/dL GFR Calculation 117.4 (90-130) mL/min Glucose 87 (65-115) mg/dL Calculated Osmolal ity 287 (285-295) mOsm/k g Calcium 9.5 (8.5-10.5) mg/dL Total Bilirubin 0.3 (0.15-1.2) mg/dL AST 12 (0-32) U/L ALT 10 (0-33) U/L Alkaline Phosphata se 78 (35-105) IU/L Creatine Kinase 52 (26-192) U/L Troponin T Baselin e 6 (0-10) ng/L Troponin T 120 Min [place] (0-10) ng/L Delta Troponin T (0-10) ABS# Total Protein 7.1 (6.6-8.7) g/dL Albumin 4.6 (3.5-5.2) g/dL Globulin 2.5 (1.3-4.6) g/dL 11/24/20 11/24/20 Range/Units 17:28 19:05 WBC (4.0-10.0) 10^3/ uL RBC (4.1-5.3) 10^6/u L Hgb (11.5-15.3) g/dL Hct (37.0-47.0) % MCV (81-99) fL MCH (28.0-34.0) pg MCHC (30.0-36.0) g/dL RDW (12.1-15.1) % Plt Count (130-400) 10^3/c mm MPV (7.4-10.4) fL Neut % (Auto) % Lymph % (Auto) % [place] % (Auto) % Eos % (Auto) % Baso % (Auto) % Neut # (Auto) (1.8-7.7) 10^3/u L Lymph # (Auto) (0.8-4.8) 10^3/u L [place] # (Auto) (0.2-0.9) 10^3/u L Eos # (Auto) (0.0-0.8) 10^3/u L Baso # (Auto) (0.0-0.1) 10^3/u L Nucleated RBC % (a uto) % Nucleated RBCs # /100WBC D-Dimer 0.44 (0-0.59) ug/mIFE U Sodium (136-145) mmol/L Potassium (3.5-5.1) mmol/L Chloride (98-107) mmol/L Carbon Dioxide (22-29) mmol/L Anion Gap (5-19) BUN (6-20) mg/dL Creatinine (0.5-0.9) mg/dL GFR Calculation (90-130) mL/min Glucose (65-115) mg/dL Calculated Osmolal ity (285-295) mOsm/k g Calcium (8.5-10.5) mg/dL Total Bilirubin (0.15-1.2) mg/dL AST (0-32) U/L ALT (0-33) U/L Alkaline Phosphata se (35-105) IU/L Creatine Kinase (26-192) U/L Troponin T Baselin e (0-10) ng/L Troponin T 120 Min [place] 6.00 (0-10) ng/L Delta Troponin T 0 (0-10) ABS# Total Protein (6.6-8.7) g/dL Albumin (3.5-5.2) g/dL Globulin (1.3-4.6) g/dL EKG Data^: EKG 2: Attestation: I personally reviewed and interpreted this EKG as follows: EKG Interpretation Date: 11/24/20 EKG interpretation time: 20:35 Prior EKG tracings: not available for review Interpretation: Normal sinus rhythm, normal NM interval, normal P waves, normal QRS, normal QT interval, normal T wave. Normal ST segment. Impression normal EKG. Discharge Plan Discharge Patient Disposition: Home Clinical Impression: Atypical chest pain, Chest pain due to GERD, Esophageal spasm Chest pain Qualifiers: Chest pain type: other chest pain Qualified Code(s): R07.89 - Other chest pain Condition: Stable Prescriptions: New Levsin/SL 0.125 mg tablet, sublingual 0.125 mg PO Q6H PRN (Reason: dyspepsia) Qty: 15 RF: 2 omeprazole 40 mg capsule,delayed release(DR/EC) 40 mg PO DAILY Qty: 14 RF: 2 Carafate 1 gram tablet 1 g PO Q6H Qty: 20 RF: 2 Discharge Orders: Discharge ED (Routine); Ordered 11/24/20 Ordered By: Jorge Cheng Referrals: Amanda Girard DO [Primary Care Provider] - 4-7 days Discharge Diet: Advance as tolerated Discharge Activity: Resume usual activity Patient Instructions: Opioid Safety Activity Restrictions/Additional Instructions: May take Levsin as needed for esophageal spasm. Take omeprazole and Carafate to help with reflux. Sign Out Sign Out Data: Patient Sign Out occurred on 11/24/20 at 18:14. Patient's care was discussed, and care was transferred from to Jorge Cheng MD. Coding Level of Care Code ED Loan Operations Specialist for Chg Alexander
== END 2020-11-24 20:45 | disposition home or self-care (01) ==
PROVIDERS: Family Medicine; Emergency Provider Family Medicine; PCP Family Medicine
DX: R07.89 Other chest pain (principal); K21.9 Gastro-esophageal reflux disease without esophagitis; K22.4 Dyskinesia of esophagus; F17.210 Nicotine dependence, cigarettes, uncomplicated
CPT/HCPCS: 36415; 71045; 80053; 82550; 84484; 85025; 85378; 93005; 99283

== ENCOUNTER 2023-09-04 09:44 | Emergency (ER) | payer BC, MEDICAID, SELFPAY ==
--- NOTE | 2023-09-04 09:52 | ECG_ITS ---
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 Measurements Intervals [place] Rate: 83 P: 15 DE: 105 QRS: 18 QRSD: 76 T: 39 QT: 330 QTc: 389 Interpretive Statements SINUS RHYTHM WITH SHORT DE INTERVAL NONSPECIFIC T-WAVE ABNORMALITY INTERPRETATION BASED ON A DEFAULT AGE OF 40 YEARS Compared to ECG 11/24/2020 20:32:38 Short DE interval now present T-wave abnormality now present Electronically Signed On 09-04-2023 19:28:27 NIGHT WAREHOUSE MANAGER by Ольга Diaz M.D. [id number] f
[2023-09-04 09:55] VITALS: BP 110/71; PULSE 75; RESP 18; TEMP 36.8; O2SAT 99; BMI 40.3
== END 2023-09-04 10:25 | disposition left against medical advice (07) ==
PROVIDERS: Emergency Provider Internal Medicine; PCP Family Medicine
DX: Z53.21 Procedure and treatment not carried out due to patient leaving prior to being seen by health care provider (principal)
CPT/HCPCS: 93005; 99285

== ENCOUNTER 2025-01-24 17:02 | Emergency (ER) | payer MEDICAID, SELFPAY ==
[2025-01-24 17:06] VITALS: BP 133/83; PULSE 88; RESP 16; TEMP 36.8; O2SAT 100
[2025-01-24 18:26] LABS: Basophils % 0.2 %; Eosinophils % 0.1 %; Hematocrit 41.5 % (36-47); Lymphocytes # 1.7 10^3/uL (0.8-4.8); Mean Corpuscular HGB Conc 32.8 g/dL (30-55); Mean Corpuscular Volume 82.5 fl (85-98); Mean Platelet Volume 11.1 fL (7.4-10.4); Monocytes # 0.5 10^3/uL (0.2-0.9); Monocytes % 5.9 %; Neutrophils # 5.99 10^3/uL (1.8-7.7); Neutrophils % 72.6 %; Nucleated Red Blood Cells % 0 %; Platelet Count 279 10^3/cmm (157-399); Red Blood Count 5.03 10^6/uL (3.85-5.65); Red Cell Distribution Width 13.2 % (12.1-15.1); White Blood Count 8.27 10^3/uL (3.29-11.43)
[2025-01-24 18:38] LABS: HCG, Serum Qual Negative (Negative)
[2025-01-24 18:43] LABS: Alanine Aminotransferase 12 U/L (0-33); Albumin Level 4.5 g/dL (3.5-5.2); Alkaline Phosphatase 79 U/L (35-105); Anion Gap 17.9 (5-19); Aspartate Amino Transferase 14 U/L (0-32); Blood Urea Nitrogen 9 mg/dL (6-20); Calcium 9.5 mg/dL (8.5-10.5); Carbon Dioxide 21 mmol/L (22-29); Chloride 102 mmol/L (98-107); Creatinine Clr Calc Pharmacy 158.3641; Globulin 3.3 g/dL (1.3-4.6); Glomerular Filtration Rate 114.4 mL/min (90-130); Glucose 80 mg/dL (65-115); Lipase 20 U/L (13-60); Osmolality Calculated 282 mOsm/kg (285-295); Potassium 3.9 mmol/L (3.5-5.1); Sodium 137 mmol/L (136-145); Total Protein 7.8 g/dL (6.6-8.7)
[2025-01-24 18:51] VITALS: O2SAT 99
[2025-01-24 19:05] LABS: Bilirubin Urine Negative (Negative); Blood Urine Negative (Negative); Glucose Urine UA Negative (Normal); Ketones Urine 4+ (Negative); Leukocyte Esterase Urine Negative (Negative); Nitrate Urine Negative (Negative); Protein Urine Negative (Negative); Specific Gravity, Urine 1.018 (1.005-1.030); Urine Appearance Clear (CLEAR); Urine Color Yellow (Yellow); pH Urine 5.5 (5-7)
[2025-01-24 19:08] LABS: Add Urine Microscopic? YES; Bacteria Urine 1+ /hpf; Hyaline Casts Urine 2.05 /lpf; Squamous Epithelial Cell Urine 0-5 /hpf (0-5)
--- NOTE | 2025-01-24 19:10 | CTR_ITS ---
PROCEDURE INFORMATION: Exam: CT Abdomen And Pelvis Without Contrast Exam date and time: 01/24/2025 7:20 PM Age: 34 years old Clinical indication: Constipation and nausea and vomiting; Abdominal pain; Localized; Left lower quadrant (llq); Prior surgery; Surgery date: 6+ months; Surgery type: Gb. Csection x4; Llq pain with n/v and constipation; Additional info: Llq abd pain TECHNIQUE: Imaging protocol: Computed tomography of the abdomen and pelvis without contrast. Radiation optimization: All CT scans at this facility use at least one of these dose optimization techniques: automated exposure control; mA and/or kV adjustment per patient size (includes targeted exams where dose is matched to clinical indication); or iterative reconstruction. COMPARISON: CR XR chest 1V portable [id number] 11/24/2020 5:19 PM RADIATION DOSE METRICS: Total DLP (mGy-cm): 1015.16 FINDINGS: Liver: Normal. No mass. Gallbladder and biliary ducts: Prior cholecystectomy without biliary ductal dilatation. Pancreas: Normal. No ductal dilation. Spleen: Normal. No splenomegaly. Adrenal glands: Normal. No mass. Kidneys and ureters: Normal. No calcified urolithiasis. No hydronephrosis. Stomach and bowel: Unremarkable. No bowel dilatation to suggest obstruction. Small duodenal diverticulum. Appendix: No evidence of appendicitis. Intraperitoneal space: Unremarkable. No free air. No significant fluid collection. Vasculature: Unremarkable. No abdominal aortic aneurysm. Lymph nodes: Unremarkable. No enlarged lymph nodes. Urinary bladder: Unremarkable as visualized. Reproductive: Unremarkable as visualized. Bones/joints: Unremarkable. No acute fracture. Soft tissues: Small fat containing umbilical hernia. CT/CT abdomen pelvis con [id number] IMPRESSION: No acute findings.
[2025-01-24 19:32] LABS: HCG Qualitative Urine. Negative (Negative)
[2025-01-24] MEDS: sodium chloride 0.9% 1,000 ML 999 ML IV (19:49)
[2025-01-24 19:57] LABS: Lactic Sepsis W/Reflex 1.1 mmol/L (0.5-2.2)
--- NOTE | 2025-01-24 20:13 | ED_ITS ---
HPI - Abdominal Pain 2 General: Chief Complaint: Abdominal Pain Stated Complaint: lower left side abdominal pain Time Seen by Provider: 01/24/25 18:52 History of Present Illness: Patient is a 34-year-old female on GIP/GLP-1 agonist Zepbound for weight loss, presents to ED due to left lower quadrant abdominal pain. Patient was seen by primary care earlier today, that was concern regarding abdominal pain with associated nausea and vomiting for the last 4 days, and primary care sent to ED. Patient initially started having issues on Monday, 4 days ago, for which she went to [facility]. Abdominal x-ray was obtained, according to patient, and lab work. Patient was told she had severe constipation, and took Colace [id number]. She had multiple stools. She continues to have persistent left lower quadrant pain, with some association of nausea, no emesis at this time. Associated Symptoms: Reports change in stool character, nausea and vomiting; Denies chills and fever(s) Related Data Home Medications ?Medication ?Instructions ?Recorded ?Confirmed ibuprofen 800 mg tablet 800 mg PO Q6H 08/13/2408/13 ondansetron 4 mg disintegrating 4 mg PO Q6H 08/13/24 0 08/13/24 tablet promethazine [Phenergan] PO PRN 08/13/24 08/13/24 Previous Rx's ?Medication ?Instructions ?Recorded propranolol 20 mg tablet 20 mg PO BID 3 months #180 t abs 09/04/24 Allergies Allergy/AdvReac Type Severity Reaction Status Date / Time Latex, Natural Rubber Allergy ALGY-Rash Verified 08/13/24 09:29 Review of Systems 2 General: Reports: 10 or more systems reviewed and unremarkable except in HPI and below Const: Denies: fever(s) or chills Eyes: Denies: change in vision or blurry vision ENMT: Denies: throat pain Card: Denies: chest pain or palpitations Resp: Denies: dyspnea or productive cough GI: Reports: abdominal pain, nausea, vomiting and change in stool character : Denies: flank pain or difficulty voiding Musc: Denies: neck pain or back pain Skin/Breast: Denies: rash or pruritus Neuro: Denies: headache(s) or numbness in extremities Psych: Denies: anxiety or depression PFSH ED 2 PFSH: Medical History No pertinent past medical history neghx: htn,dm,thyroid,dvt/pe 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 Family/Other Breast cancer Maternal Aunt--dx age 30's Diabetes Maternal side-- several members; only MGF with insulin Other Family history of premature coronary artery disease Denies family history of Colon cancer Ovarian cancer Heart disease Hypercholesteremia Hypertension Uterine cancer Thyroid disease Stroke Social History Smoking and tobacco/nicotine status: former use of tobacco/nicotine (quit 2021) Alcohol intake: current Substance/Drug Use: never Physical Exam 2 Const: COMMON NORMALS: no acute distress, average body habitus, patient oriented x3, no limitations, healthy appearing, alert and well nourished HENMT: COMMON NORMALS: normocephalic, atraumatic and hearing grossly normal bilaterally HEAD & SCALP: normocephalic and atraumatic Chest: COMMONS NORMALS: normal inspection of the chest and normal palpation of entire chest wall Resp: COMMON NORMALS: normal respiratory effort, No retractions and clear to auscultation bilaterally AUSCULTATION: clear to auscultation bilaterally Cardio: COMMON NORMALS: regular rate and regular rhythm RATE: regular rate RHYTHM: regular rhythm GI: INSPECTION: Yes normal to inspection AUSCULTATION: Yes Hypoactive bowel sounds present PALPATION: Yes Tenderness to palpation present (GI) Details: LLQ and Yes Guarding due to palpation present (GI) in the LLQ (mild) : COMMON NORMALS: Yes no CVA tenderness BLADDER/KIDNEY EXAM: Yes no CVA tenderness Back/Pelvis: COMMON NORMALS: no CVA tenderness Extremity: COMMON NORMALS: normal to inspection, full ROM and capillary refill normal Neuro: COMMON NORMALS: patient oriented x3 SENSORIUM/ORIENTATION: Yes alert Psych: COMMON NORMALS: mental status grossly normal and Normal thought process present THOUGHT PROCESS: Normal thought process present Skin: COMMON NORMALS: no rashes or lesions noted, no wounds and turgor normal GENERAL SKIN EXAM: no rashes or lesions noted and turgor normal Course 2 Vital Signs: Vital signs: Vital Signs Temperature 98.3 F 01/24/25 17:06 Pulse Rate 88 01/24/25 17:06 Respiratory Rate 16 01/24/25 17:06 Blood Pressure 133/83 01/24/25 17:06 Pulse Oximetry 99 01/24/25 18:51 Oxygen Delivery Me thod Room Air 01/24/25 18:51 MDM - Abdominal Pain Medical Decision Making Patient is 34-year-old female with obesity that is on GIP/GLP-1 Zepbound, last dose on Monday, 2 days ago, that reports to emergency room from primary care with left lower quadrant pain. CT of the abdomen pelvis essentially without any acute findings. She received 1 L IV fluids. Laboratory data is without findings. Suspect this is medication side effect. Discussed this with patient at length, and recommended adding a probiotic. Lab Data 01/24/25 18:12 01/24/25 18:12 Labs/Radiology: Radiology Impressions Abdomen/Pelvis CT 01/24/25 19:10 IMPRESSION: No acute findings. Laboratory Results WBC 8.27 10^3/uL (3.29-11.43) 01/24/25 18:12 RBC 5.03 10^6/uL (3.85-5.65) 01/24/25 18:12 Hgb 13.60 g/dL (11.27-16.99) 01/24/25 18:12 Hct 41.5 % (36-47) 01/24/25 18:12 MCV 82.5 fl (85-98) L 01/24/25 18:12 MCH 27.0 pg (27-33) 01/24/25 18:12 MCHC 32.8 g/dL (30-55) 01/24/25 18:12 RDW 13.2 % (12.1-15.1) 01/24/25 18:12 Plt Count 279 10^3/cmm (157-399) 01/24/25 18:12 MPV 11.1 fL (7.4-10.4) H 01/24/25 18:12 Neut % (Auto) 72.6 % 01/24/25 18:12 Lymph % (Auto) 21.0 % 01/24/25 18:12 [place] % (Auto) 5.9 % 01/24/25 18:12 Eos % (Auto) 0.1 % 01/24/25 18:12 Baso % (Auto) 0.2 % 01/24/25 18:12 Neut # (Auto) 5.99 10^3/uL (1.8-7.7) 01/24/25 18:12 Lymph # (Auto) 1.7 10^3/uL (0.8-4.8) 01/24/25 18:12 [place] # (Auto) 0.5 10^3/uL (0.2-0.9) 01/24/25 18:12 Eos # (Auto) 0.0 10^3/uL (0.0-0.8) 01/24/25 18:12 Baso # (Auto) 0.0 10^3/uL (0.0-0.1) 01/24/25 18:12 Nucleated RBC % (auto) 0 % 01/24/25 18:12 Nucleated RBCs # 0.0 /100WBC 01/24/25 18:12 Sodium 137 mmol/L (136-145) 01/24/25 18:12 Potassium 3.9 mmol/L (3.5-5.1) 01/24/25 18:12 Chloride 102 mmol/L (98-107) 01/24/25 18:12 Carbon Dioxide 21 mmol/L (22-29) L 01/24/25 18:12 Anion Gap 17.9 (5-19) 01/24/25 18:12 BUN 9 mg/dL (6-20) 01/24/25 18:12 Creatinine 0.6 mg/dL (0.5-0.9) 01/24/25 18:12 GFR Calculation 114.4 mL/min (90-130) 01/24/25 18:12 Glucose 80 mg/dL (65-115) 01/24/25 18:12 Calculated Osmolality 282 mOsm/kg (285-295) L 01/24/25 18:12 Lactic Acid 1.1 mmol/L (0.5-2.2) 01/24/25 19:33 Calcium 9.5 mg/dL (8.5-10.5) 01/24/25 18:12 Total Bilirubin 1.0 mg/dL (0.15-1.2) 01/24/25 18:12 AST 14 U/L (0-32) 01/24/25 18:12 ALT 12 U/L (0-33) 01/24/25 18:12 Alkaline Phosphatase 79 U/L (35-105) 01/24/25 18:12 Total Protein 7.8 g/dL (6.6-8.7) 01/24/25 18:12 Albumin 4.5 g/dL (3.5-5.2) 01/24/25 18:12 Globulin 3.3 g/dL (1.3-4.6) 01/24/25 18:12 Lipase 20 U/L (13-60) 01/24/25 18:12 HCG, Qual Negative (Negative) 01/24/25 18:55 Urine Color Yellow (Yellow) 01/24/25 18:55 Urine Appearance Clear (CLEAR) 01/24/25 18:55 Urine pH 5.5 (5-7) 01/24/25 18:55 Ur Specific [place] 1.018 (1.005-1.030) 01/24/25 18:55 Urine Protein Negative (Negative) 01/24/25 18:55 Urine Glucose (UA) Negative (Normal) 01/24/25 18:55 Urine Ketones 4+ (Negative) 01/24/25 18:55 Urine Blood Negative (Negative) 01/24/25 18:55 Urine Nitrate Negative (Negative) 01/24/25 18:55 Urine Bilirubin Negative (Negative) 01/24/25 18:55 Urine Urobilinogen 1.0 mg/dL (Negative) 01/24/25 18:55 Ur Leukocyte Esterase Negative (Negative) 01/24/25 18:55 Urine RBC 3-5 /hpf (0-2) 01/24/25 18:55 Urine WBC 6-10 /hpf (0-5) 01/24/25 18:55 Ur Squamous Epith Cells 0-5 /hpf (0-5) 01/24/25 18:55 Amorphous Sediment Not Reportable 01/24/25 18:55 Urine Bacteria 1+ /hpf (NONE) H 01/24/25 18:55 Hyaline Casts 2.05 /lpf 01/24/25 18:55 All radiology interpretation(s) finalized by discharge Discharge Plan Discharge Patient Disposition: Home Clinical Impression: Abdominal pain, Obstipation, Drug side effects Condition: Stable Prescriptions: No Action ondansetron 4 mg tablet,disintegrating 4 mg PO Q6H promethazine [Phenergan] PO PRN ibuprofen 800 mg tablet 800 mg PO Q6H propranolol 20 mg tablet 20 mg PO BID 90 Days Qty: 180 0RF Discharge Orders: Discharge ED (Routine); Ordered 01/24/25 Ordered By: Madelyn May Referrals: Amanda Girard DO [Primary Care Provider, Family Practice] Discharge Diet: Usual diet Discharge Activity: Resume usual activity Patient Instructions: Constipation (ED), Abdominal Pain (ED) Activity Restrictions/Additional Instructions: Take probiotic x 2 daily. If you have increasing nausea, add additional probiotic Avoid Zofran Benadryl liquid?follow bottle directions for nausea Return to ED for worsening pain, inability to pass gas, fevers. Tylenol or ibuprofen for pain Is important you follow-up with your primary care physician regarding your medication side effect and any further decision making. Stand Alone Forms: Work/School Release Print Language: [place] Coding Level of Care Code ED Bank Note Designer for Razia Munoz
[2025-01-24 20:53] VITALS: BP 140/76; PULSE 87; O2SAT 100
== END 2025-01-24 20:54 | disposition home or self-care (01) ==
PROVIDERS: Family Medicine; Emergency Provider Physician Assistant; PCP Family Medicine
DX: R10.9 Unspecified abdominal pain (principal); K59.00 Constipation, unspecified; T50.905A Adverse effect of unspecified drugs, medicaments and biological substances, initial encounter; X58.XXXA Exposure to other specified factors, initial encounter; Z87.891 Personal history of nicotine dependence
CPT/HCPCS: 36415; 74176; 80053; 81001; 81025; 83605; 83690; 84703; 85025; 99284; J7030